=== PATIENT | female | born 1970 | race Caucasian/White ===

== ENCOUNTER → 2017-04-16 | Outpatient (CLI) | payer BC ==
[~2017-04-16] MED LIST: CIPROFLOXACIN500 M1 PO; CYMBALTA30 MG PO; CYMBALTA60 MG PO; DEXILANT60 MG; HYDROCODONE-AP1 EAC6 PO; IBUPROFEN 800800 M1 PO; LINZESS145 MCG PO; MOBIC15 MG PO; NABUMETONE 750750 M1 PO; NORCO 5-325 TA1 EACH PO; PERCOCET 5-3251 EACH PO; STEROID EYE DROPS; TAMSULOSIN HCL0.4 MG PO; TRAMADOL 50 MG50 MG; TRAMADOL 50 MG50 MG PO; ULTRAM 50MG TAB50 MG PO; XANAX 0.5 MG0.5 MG PO; ZOFRAN4 MG PO; ZPAK PO
--- NOTE | 2017-04-18 09:59 | PAINCON ---
[address] [address] PAIN MANAGEMENT CONSULTATION Name: KATHERINE RICHARD Room: [facility]..#: [id number] Admission: 04/16/17 Attend Phys: Edgar Gloria Discharge: Date of : 72 Report #: [id number] THIS REPORT FOR: //name// CC: Angelia Dugan DATE OF SERVICE: 04/16/2017 The patient is a very pleasant 46-year-old female who is typically treated for cervical radiculopathy, cervical spondylosis, myofascial pain, requiring high risk complex medication management, component of insomnia and anxiety. Last seen in pain clinic 01/15/2017, continued on baseline medication including tramadol 50 mg up to 4 a day, hydrocodone 5/325 up to 3 a day, Relafen 750 p.r.n. Continued on Cymbalta 30 mg a day. She returns to pain clinic today, we had a moderately prolonged visit reviewing therapeutic options. She notes pain is a little bit worse with anxiety and cold weather. Struggling with issues of her mother's declining health. Apparently, she has significant chronic obstructive pulmonary disease and was intubated on ventilator for a short period of time. She feels her mother is nearing the end of her life. The patient states she has not been eating and in fact she has lost a little bit of weight, last office visit weight was 152 pounds, she is down to 137. BMI is 25.9 kilograms per meter squared. She does have pain in the low back and is concerned about some kidney pain. PHYSICAL EXAMINATION: Shows a 46-year-old female, again 5 feet 1 inch, 137 pound, BMI is 25.9 kilograms per meter squared. Blood pressure 125/75, pulse 79, respirations are 18. Rises from chair using armrest. Gait is tandem, is a little tender in the upper lumbar paravertebral muscles, though there is no specific costovertebral angle tenderness to percussion. Lower extremity strength is symmetric. Straight leg raise is negative. We reviewed the fact that opiate medications are being used to provide analgesia adequate to support activities of daily living, not attempting to achieve a specific pain score on the 0-10 Visual Analog Scale. The current opiate medications are providing sufficient analgesia to allow the patient to participate in activities of daily living. The patient is not exhibiting any aberrant behavior suggestive of drug diversion. The patient is not having any adverse reactions to medications. The patient is not suffering from daytime somnolence or mental acuity changes. The patient is managing opiate-induced constipation with appropriate ywkd-flx-mgwxjnd agents and dietary considerations. The patient was counseled on concern for caution with operating a motor vehicle while using opiate medications. A physical exam was performed and the patient's [place] [address] PAIN MANAGEMENT CONSULTATION Name: KATHERINE RICHARD FABRICE Room: [facility]#: [id number] Admission: 04/16/17 Attend Phys: Edgar Gloria Discharge: Date of : 72 Report #: [id number] All patients with back pain were advised against the bed rest greater than 4 days and were advised to return to normal activities. Pain score assessment was noted and the treatment plan was reviewed with the patient. All current medications, both prescribed and OTC were reviewed and reconciled on the electronic medical record. Tobacco screening was accomplished and smoking cessation was advised when indicated. BMI was noted and diet/exercise modification was recommended for all patients following outside normal parameters. I reviewed with the patient today their responsibilities to safeguard prescription medications, reviewed their responsibility to utilize medications only as prescribed by the physician. They are to seek and receive pain medications only from one physician group ( [facility]). They are to use one pharmacy and keep the clinic informed if they change pharmacies. Their responsibilities include making followup visits in a timely fashion and to avoid abrupt discontinuation of medication usage. Their responsibilities further include bringing their medications (bottles from the pharmacy with residual pills) to the visit for possible confirmation of pill counts and the patient understands it is their responsibility to submit to random drug screens to ensure both that the medications prescribed are present, and that no other controlled substances are present. All prescriptions provided today were generated electronically. We did discuss anxiety, weight loss, anorexia and sleep disruption. After discussion with the patient, it was elected to increase Cymbalta to 60 mg. We talked about sleep hygiene. We will continue opiate analgesic unchanged, hydrocodone 5/325 t.i.d. and tramadol 50 mg up to 4 times a day. Continue with simply p.r.n. nabumetone on a nondaily basis. The patient was discharged in good and stable condition after approximately 25-minute visit spent in counseling the patient, reviewing grief issues, sleep hygiene, anxiety and pain management concerns. Follow up in 2 months for reevaluation. <ELECTRONICALLY SIGNED> By: Max Dugan DO 04/18/17 0959 1225 [id number] Dugan DO /nt
== END ==
LOC: M.PC 04-09 08:00
DX: M54.12 Radiculopathy, cervical region (principal); M47.892 Other spondylosis, cervical region; M79.1 Myalgia; G47.09 Other insomnia; F41.9 Anxiety disorder, unspecified; Z79.899 Other long term (current) drug therapy

== ENCOUNTER → 2017-07-09 | Outpatient (CLI) | payer BC ==
--- NOTE | 2017-07-14 08:02 | PAINCON ---
[address] [address] PAIN MANAGEMENT CONSULTATION Name: KATHERINE RICHARD Room: [facility] Priyanka#: [id number] Admission: 07/09/17 Attend Phys: Edgar Gloria Discharge: Date of : 72 Report #: [id number] THIS REPORT FOR: //name// CC: Angelia Dugan The patient is a very pleasant 46-year-old female being treated for cervical radiculopathy, cervical spondylosis, myofascial pain requiring complex medication management. Comorbidities include insomnia and anxiety. Last seen in pain clinic 04/16/2017. The patient's mother was quite sick with COPD. She has succumbed in the interval since I last saw her. The patient notes she has had a tough year. While her mother was dying, her kulpti-kc-irs was also ill. He has recovered, but he had surgery and is recuperating at their home. The patient remains quite stoic. She does, however, have somewhat of a raspy voice today, appears to have little bit of a sinus infection. Physical exam notes the patient to be afebrile, though she does have significant cervical adenopathy, posterior pharyngeal erythema and tenderness over the frontal maxillary sinuses. BMI is 26 kilograms per meter squared. Blood pressure 106/57, pulse 100, respirations 16. Ongoing pain in neck, shoulder and arm. Cervical range of motion is modestly limited. Subjective pain score is 6 on a VAS. We reviewed the fact that opiate medications are being used to provide analgesia adequate to support activities of daily living, not attempting to achieve a specific pain score on the 0-10 Visual Analog Scale. The current opiate medications are providing sufficient analgesia to allow the patient to participate in activities of daily living. The patient is not exhibiting any aberrant behavior suggestive of drug diversion. The patient is not having any adverse reactions to medications. The patient is not suffering from daytime somnolence or mental acuity changes. The patient is managing opiate-induced constipation with appropriate srxb-ite-alhirbp agents and dietary considerations. The patient was counseled on concern for caution with operating a motor vehicle while using opiate medications. A physical exam was performed and the patient's functional status was evaluated. All patients with back pain were advised against the bed rest greater than 4 days and were advised to return to normal activities. Pain score assessment was noted and the treatment plan was reviewed with the patient. All current medications, both prescribed and OTC were reviewed and reconciled on the electronic medical record. Tobacco screening was accomplished and smoking cessation was advised when indicated. BMI was noted and diet/exercise modification was recommended for all patients following outside normal parameters. I reviewed with the patient today their responsibilities to safeguard prescription medications, reviewed their responsibility [place] [address] PAIN MANAGEMENT CONSULTATION Name: KATHERINE RICHARD Room: [facility] Mathew#: [id number] Admission: 07/09/17 Attend Phys: Edgar Gloria Discharge: Date of : 72 Report #: [id number] only as prescribed by the physician. They are to seek and receive pain medications only from 1 physician group ( [facility]). They are to use 1 pharmacy and keep the clinic informed if they change pharmacies. Their responsibilities include making followup visits in a timely fashion and to avoid abrupt discontinuation of medication usage. Their responsibilities further include bringing their medications (bottles from the pharmacy with residual pills) to the visit for possible confirmation of pill counts and the patient understands it is their responsibility to submit to random drug screens to ensure both that the medications prescribed are present, and that no other controlled substances are present. All prescriptions provided today were generated electronically. ASSESSMENT: 1. Symptomatic cervical radiculopathy, cervical spondylosis, requiring chronic complex medication management, stable on baseline medication. Recommendation: Continue Ultram 50 mg 3-4 a day, hydrocodone 5/325 maximum 3 a day, Cymbalta 60 mg daily, Relafen 750 b.i.d. on a p.r.n. basis. 2. Acute sinusitis. Recommendation: Z-YAMIL and Mucinex D [id number]-ppxrgmh. Continue NeilMed sinus rinses. Follow up 2 months for reevaluation. Today, we did get a buccal drug swab. No aberrant behavior suggestive of drug diversion, simply complying with opiate consent to treat contract. Discharged in good and stable condition after a prolonged visit, seen from 8:00 a.m. to 8:25. Greater than 50% of the 25 plus minute visit was spent counseling the patient, talking about complicated grief, stress, anxiety and its relationship to pain. Discharged in good and stable condition. <ELECTRONICALLY SIGNED> By: Max Dugan DO 07/14/17801 1542 1956Max Dugan DO /nt
== END ==
LOC: M.PC 00:30
DX: M47.22 Other spondylosis with radiculopathy, cervical region (principal); J01.90 Acute sinusitis, unspecified; Z79.899 Other long term (current) drug therapy

== ENCOUNTER → 2017-10-01 | Outpatient (CLI) | payer BC ==
--- NOTE | 2017-10-02 07:27 | PAINCON ---
[facility] [address] [place] [address] PAIN MANAGEMENT CONSULTATION Name: KATHERINE RICHARD Room: [facility] Mathew#: [id number] Admission: 10/01/17 Attend Phys: Edgar Gloria Discharge: Date of : 72 Report #: [id number] THIS REPORT FOR: //name// CC: Angelia Dugan The patient is a very pleasant 46-year-old female being treated for symptomatic cervical radiculopathy, cervical spondylosis, myofascial pain requiring complex medication management. Last seen in the pain clinic on 07/09/2017. The patient was continued on hydrocodone 5/325 t.i.d. and tramadol 50 mg 1 tablet 3-4 times a day, limit 100 tablets for 30 days. Last random drug screen at last visit was positive for prescribed medications and no others. Last visit, the patient was having some ongoing struggles with psychosocial issues. Her mother had passed recently. Her pdicay-rw-dxu had surgery and was slow to recover. Started the patient on Cymbalta, which she found not terribly efficacious. She did have a little upper respiratory infection at that time and I treated her with a Z-YAMIL. She returns to the pain clinic today. She is doing better from a psychosocial standpoint. Actually doing better from a pain standpoint as well. She does take hydrocodone 5/325 one tablet typically up to 3 times a day. Uses Linzess for some chronic OIC. Tramadol 50 mg 1 tablet 3-4 times a day, limit 100 tablets for 30 days with 2 refills. I have taken the liberty of writing for 3 months of current medication. The patient notes that the medications help with concurrent pain is well under control. She notes pain is typically 3 on a VAS, increases at most to 8 on a VAS. She notes the pain is exacerbated with activity, but she has continued to be functional. PHYSICAL EXAMINATION: Shows 5 feet 1 inch, 147 pound female, BMI is 27 kilograms per meter squared. Vital signs stable. Alert and oriented to person, place and time, judged to be a reasonable historian. Cervical range of motion is actually fairly preserved. Some pain in the left shoulder with range of motion. Diffuse tenderness across the low back. No discrete trigger points. Gait is tandem. ASSESSMENT: Symptomatic cervical radiculopathy, cervical spondylosis, myofascial pain requiring complex medication management, stable on baseline medication. Last random drug screen at last visit on 07/09/2017 positive for prescribed medications. RECOMMENDATION: I have taken the liberty of writing for 3 months of current medications. She is still on a very low dose opiate, hydrocodone 5/325 up to [address] [place] [address] PAIN MANAGEMENT CONSULTATION Name: KATHERINE RICHARD Room: [facility] Mathew#: [id number] Admission: 10/01/17 Attend Phys: Edgar Gloria Discharge: Date of : 72 Report #: [id number] a day, tramadol 50 mg up to 4 a day. We will have her follow with Dr. Mukund Fuentes as needed. <ELECTRONICALLY SIGNED> By: Max Dugan DO 10/02/17 0727 1413 0022Max Dugan DO /nt
== END ==
LOC: M.PC 04:58
DX: M47.22 Other spondylosis with radiculopathy, cervical region (principal); M79.1 Myalgia; Z79.899 Other long term (current) drug therapy

== ENCOUNTER → 2017-12-25 | Outpatient (CLI) | payer BC ==
--- NOTE | 2018-01-19 10:00 | PAINCON ---
[address] [address] PAIN MANAGEMENT CONSULTATION Name: KATHERINE RICHARD Room: [facility] Arboleda.#: [id number] Admission: 12/25/17 Attend Phys: Edna Fuentes MD Discharge: Date of : 71 Report #: [id number] THIS REPORT FOR: //name// CC: Edna Morejon DO DATE OF SERVICE: 12/25/2017 CHIEF COMPLAINT: Neck and left shoulder pain. HISTORY OF PRESENT ILLNESS: The patient is a 47-year-old female who has been followed in the pain clinic for some time by Dr. Max Dugan. She experiences pain and discomfort in her neck. She has also had some pain in the occipital area. She has undergone injections in this area, also has had some trigger point injections in her neck. At this juncture, she rates her pain as 4/10. She has had a history of passing clots after steroid injections. She thinks that her pain has exacerbated by her work load. 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 By the time she goes home in the evening, she has increased from 4 in the morning to 6 at night. She finds that the hydrocodone, Linzess, tramadol and nabumetone are helpful. Feels that they are about 80% helpful in improving her pain. She has returned today with the hopes of renewing her medications. She has had no complications with the medications. States that she takes them as prescribed. Keeps her medications in a guarded area. ALLERGIES: PHENOTHIAZINES, PROCHLORPERAZINE, METOCLOPRAMIDE. MEDICATIONS: Alprazolam 0.5 mg b.i.d. Dexilant 60 mg, hydrocodone 5/325 one p.o. t.i.d., Linzess 145 mcg, nabumetone/Relafen 750 mg b.i.d., Ultram 100 mg, steroid eyedrops. Medications discontinued are Cymbalta 30 mg. PAST MEDICAL HISTORY: Hiatal hernia, kidney stones, emotional problems, ulcers. PAST SURGICAL HISTORY: Tonsils in 1979, tubal ligation in 2003, cholecystectomy 2001 and nose surgery in 1992. SOCIAL HISTORY: She works in an office, also clean homes. She is working at this juncture. REVIEW OF SYSTEMS: Questionnaire in the chart. Generally in good health, fever, sweats at night, headaches, constipation, frequent recurring headaches, lightheadedness, dizziness, memory loss, nervousness, insomnia. LABORATORY DATA: 1. MRI of the cervical spine dated 09/15/2013: [place] [address] PAIN MANAGEMENT CONSULTATION Name: HILARYKATHERINE FABRICE Room: [facility] Priyanka#: [id number] Admission: 12/25/17 Attend Phys: Edna Fuentes MD Discharge: Date of : 71 Report #: [id number] A: C4-C5, there is no evidence of herniation, central disk stenosis or neural foraminal stenosis. The midline measures 1.2 cm anterior posterior. B. C5-C6 level, there is mild annular disk bulge, slightly more prominent centrally and resulting in minimal effacement of the ventral midline thecal sac. There is no mass effect on the cervical cord. The exiting neural foramen are normal in appearance. There is mild central canal stenosis. The midline thecal sac measures 1 cm anterior posterior. C. C6-C7, there is a trace of annular disk bulging without focal herniation, central canal stenosis or neural foraminal stenosis. The midline thecal sac measures 1.2 cm. D. C7-T1, there is no evidence of herniation, central disk stenosis or neural foraminal stenosis. The midline measures 1.3 cm anterior posterior. PAIN CLINIC ASSESSMENT/PQRS: 1. History of osteoarthritis. The patient is not being treated for osteoarthritis or rheumatoid arthritis. 2. Height 5 feet 1 inch, weight 149 pounds, BMI is 28. 3. Vital signs: Blood pressure 137/74, heart rate 79, respiratory rate 16, room air saturation 100%, temperature 98.1. 4. Pain score of 4/10 now, 6/10 at home after work. 5. Fall history: The patient has not fallen in the last 3 months. 6. Blood thinner. The patient is not on a blood thinning medication. 7. Hypertension. The patient is being treated for hypertension. 8. Opioid good therapy greater than 6 weeks. The patient is receiving opioid medications through the pain clinic. 9. Risk assessment tool, low for opioid use. 10. Functional assessment tool. 11. Recreational drug use. The patient denies use of recreational drugs. 12. Tobacco: The patient denies use of tobacco. 13. Alcohol: The patient denies use of alcoholic beverages. PHYSICAL EXAMINATION: GENERAL: The patient is a well-developed, well-nourished white female. Appears her stated age. She is alert and oriented x 3. Her affect is appropriate. Speech is fluent. HEENT: Normocephalic, atraumatic. Extraocular eye muscles intact. Sclerae nonicteric. Mucous membranes are moist. The patient has some tenderness in the left occipital area. Palpation in this area as well as in the left shoulder and in the area of the trapezius causes and reproduces a component of her pain. Muscle strength in the upper extremities does have 5/5 with side hemmer strength 5/5. Deep tendon reflexes are +3 for the biceps bilaterally, +1 for the month, brachioradialis and trace for the triceps. MUSCULOSKELETAL: Without significant scoliosis, kyphosis or lordosis. Lower extremity muscle strength is judged to be 5/5 for the major muscle groups. Deep tendon reflexes +2 at the knees, +2 at the ankles bilaterally without signs of clubbing, cyanosis, [place] [address] PAIN MANAGEMENT CONSULTATION Name: KATHERINE RICHARD [id number] Admission: 12/25/17 Attend Phys: Edna Fuentes MD Discharge: Date of : 72 Report #: [id number] IMPRESSION: 1. Symptomatic cervical radiculopathy history. 2. Cervical spondylosis. 3. Myofascial pain requiring complex medical management. 4. History of ulcers. RECOMMENDATIONS: We discussed treatment options with the patient. We will continue with her current medical regimen. Risk and benefits of opioid medications were reviewed. The patient is aware of the possible complications of these medications that they can cause addiction. The efficacy can decrease secondary to chronic use. Overall, the patient feels that things are going reasonably well. They enable her to stay gainfully employed. She has taken the medication as prescribed. Keeps them in a guarded area. We would like to thank you for letting us participate in her care. We hope she continues to improve. <ELECTRONICALLY SIGNED> By: Edna Fuentes MD 01/19/18 1000 [id number] 1100N. Mukund Fuentes MD /nt
== END ==
LOC: M.PC 01:43
DX: M47.22 Other spondylosis with radiculopathy, cervical region (principal); M79.1 Myalgia; Z87.11 Personal history of peptic ulcer disease; Z79.899 Other long term (current) drug therapy

== ENCOUNTER → 2018-03-19 | Outpatient (CLI) | payer BC ==
--- NOTE | ~2018-03-19 | PAINCON ---
[address] [address] PAIN MANAGEMENT CONSULTATION Name: KATHERINE RICHARD Room: [facility] Arboleda.#: [id number] Admission: 03/19/18 Attend Phys: Edna Fuentes MD Discharge: Date of : 72 Report #: [id number] THIS REPORT FOR: //name// CC: Edna Moreojn DATE OF SERVICE: 03/19/2018 FOLLOWUP HISTORY: Here for medication renewal. I am going to see my GI doctor to have my throat stretched. HISTORY: The patient is a 47-year-old female who has been following the Pain Clinic. She has continued pain and discomfort in her neck. She also has pain and had pain in the occipital area. She has undergone injections in that area. Notes that the trigger point injection in her neck in the past have been beneficial. She rates her pain today as a 7. She is preparing for a colonoscopy. She has been unable to take her medications for a day or so. She states that she has esophageal strictures. Diffusely dilated yearly. She also has some problems with her bowel and they will perform a colonoscopy. Finds that the hydrocodone, Linzess, tramadol and nabumetone are continue to be helpful. Rates them in about 80% improvement in her pain with use. States her pain is generally a 3/10. It is a 7/10 today because of the lack of being able to take her medications. Otherwise, she is doing well. Has returned for renewal of her medications. 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 ALLERGIES: PHENOTHIAZINE, PROCHLORPERAZINE, METOCLOPRAMIDE. MEDICATIONS: Alprazolam 0.5 mg b.i.d., Dexilant 60 mg, hydrocodone 5/325 one p.o. t.i.d., Linzess 145 mcg, nabumetone/Relafen 750 mg b.i.d., Ultram 100 mg, steroid eye drops. Has used Cymbalta in the past, he is no longer using the medication. PAIN CLINIC ASSESSMENT/PQRS: 1. The patient is not being treated for osteoarthritis or rheumatoid arthritis. 2. Height 5 feet 1 inch, weight 154 pounds, BMI is 29. 3. Vital signs: Blood pressure 124/77, heart rate 98, respiratory rate 16, room air saturation 94. Temperature 97.8. 4. Pain intensity 7/10. 5. Blood thinner. The patient is not on a blood thinning medication. 6. Hypertension. The patient is not being treated for hypertension. 7. Opioid greater than 6 weeks. The patient receives her medication from one source, the pain clinic. 8. Risk assessment tool: Low for opioid use, 9. [place] [address] PAIN MANAGEMENT CONSULTATION Name: HILARYKATHERINE FABRICE Room: [facility]#: [id number] Admission: 03/19/18 Attend Phys: Edna Fuentes MD Discharge: Date of : 72 Report #: [id number] 10. Recreational drug use. The patient denies use of recreational drugs. 11. Tobacco: The patient denies use of tobacco. 12. Alcohol. The patient occasionally uses alcoholic beverage. PHYSICAL EXAMINATION: GENERAL: The patient is a well-developed, well-nourished white female. Appears her stated age. She is alert and oriented x 3. Her affect is appropriate. Speech is fluent. HEENT: Normocephalic, atraumatic. Extraocular eye muscles intact. Sclerae nonicteric. Mucous membranes are moist. The patient has some tenderness in the occipital areas. Has some pain in her left shoulder area and trapezius area and has some muscle soreness in the area. Muscle strength in the upper extremity judged to be 5/5 for the major muscle groups. MUSCULOSKELETAL: Without significant scoliosis, kyphosis or lordosis. Deep tendon reflexes +2 at the knees, ankles +2 without signs of clubbing, cyanosis, or edema. IMPRESSION: 1. History of cervical radiculopathy, improved with current medical regimen. 2. Cervical spondylosis. 3. Esophageal stricture history. 4. Myofascial pain, requiring complex medical management. 5. History of ulcers. The patient has been followed by her GI. RECOMMENDATIONS: We discussed treatment options with the patient. We will continue with her current medications. A script for her medication of tramadol 1 tablet p.o. q.4-6 hours p.r.n., hydrocodone 5/325 one p.o. t.i.d. p.r.n., Relafen 750 mg b.i.d., Linzess all been written. The patient will call us if she has any concerns. She will continue with her medications. She is aware that opioid medications can be problematic and become less effective secondary to development of tolerance. We would like to thank you for letting us participate in her care. We hope she continues to improve. By: [id number]. Mukund Fuentes MD /aster
== END ==
LOC: M.PC 05:26
DX: M47.22 Other spondylosis with radiculopathy, cervical region (principal); M79.18 Myalgia, other site; Z79.899 Other long term (current) drug therapy; Z87.19 Personal history of other diseases of the digestive system; Z87.11 Personal history of peptic ulcer disease

== ENCOUNTER → 2018-06-18 | Outpatient (CLI) | payer BC ==
--- NOTE | ~2018-06-18 | PAINCON ---
[address] [address] PAIN MANAGEMENT CONSULTATION Name: KATHERINE RICHARD Room: [facility]LEY Arboleda.#: [id number] Admission: 06/18/18 Attend Phys: Edna Fuentes MD Discharge: Date of : 72 Report #: [id number] THIS REPORT FOR: //name// CC: Edna Morejon DATE OF SERVICE: 06/18/2018 CHIEF COMPLAINT: Here for medication renewal. HISTORY: The patient is a 47-year-old female who has a history of symptomatic cervical radiculopathy. She has found that her medications are helpful. Pain primarily involves her left shoulder. Notes some pain which is radiating down into the left shoulder area. She has pain, which she rates as a 3/10. She has been using Linzess to help control constipation. She finds the medication is helpful. She does note sometimes if she takes the medication that she gets some cramping and upset stomach. She takes it episodically because of this. She has used nabumetone. She is not having any real problems with that medication. The patient is not being treated for osteoarthritis or rheumatoid arthritis. Overall, things are going reasonably well and she would like to have her medications renewed. She states that she is taking her medication as prescribed. She has had some problems with pain in her occipital area in the past and undergone injections. ALLERGIES: PHENOTHIAZINE, PROCHLORPERAZINE, METOCLOPRAMIDE. CURRENT MEDICATIONS: Alprazolam 0.5 mg b.i.d., Dexilant 60 mg, hydrocodone 5/325 one p.o. t.i.d., Linzess 145 mcg, nabumetone/Relafen 750 mg b.i.d., Ultram, and steroid eyedrops. PAIN CLINIC ASSESSMENT/PQRS: 1. The patient is not being treated for osteoarthritis or rheumatoid arthritis. 2. Height 5 feet 1 inch, weight is 158 pounds, BMI is 29.5. 3. Blood pressure 127/76, heart rate 85, respiratory rate 16, room air saturation 98%, temperature 98. Pain intensity 06/14. 4. Fall history: The patient has not fallen in the last 3 months. 5. Blood thinner: The patient is not on a blood thinning medication. 6. Hypertension: The patient is not being treated for hypertension. 7. Opioids greater than 6 weeks. The patient receives her medication from one source, the pain clinic. 8. Risk assessment tool, low for opioid use. 9. Functional assessment tool. 10. Recreational drug use. The patient denies use of recreational drugs. 11. Tobacco: The patient denies use of tobacco. 12. Alcohol: The patient denies frequent use of [place] [address] PAIN MANAGEMENT CONSULTATION Name: KATHERINE RICHARD FABRICE Room: [facility]#: [id number] Admission: 06/18/18 Attend Phys: Edna Fuentes MD Discharge: Date of : 72 Report #: [id number] PHYSICAL EXAMINATION: GENERAL: The patient is a well-developed, well-nourished white female. Appears her stated age. She is alert and oriented x 3. Her affect is appropriate. Speech is fluent. HEENT: Normocephalic, atraumatic. Extraocular eye muscles are intact. Sclerae nonicteric. Mucous membranes are moist. NECK: Without adenopathy or JVD. The patient has some pain and discomfort in the left shoulder in the trapezius area. Complains of the usual soreness in this area. Muscle strength in the upper extremity is judged to be 5-/5 for the major muscle groups in the upper extremity. The patient without significant scoliosis, kyphosis or lordosis. Lower extremity muscle strength is judged to be 5/5 for the major muscle groups of the lower extremity. IMPRESSION: 1. Cervical radiculopathy, improved with current medication regimen. 2. Cervical spondylosis. 3. Esophageal stricture history. 4. Myofascial pain requiring complex medical management. 5. History of ulcers. The patient has been followed by her GI. States she had an upper as well as a lower GI, which were found to be very relatively normal. Has had some abdominal cramping with use of Linzess. RECOMMENDATIONS: We discussed treatment options with the patient. We will continue with her current medications. A script for her medications of tramadol 50 mg 1 p.o. q.i.d., hydrocodone 5/325 one p.o. t.i.d., and Linzess and Relafen 750 mg have been rewritten. The patient will monitor her gut with use of nabumetone. If she finds that it is upsetting her stomach, she will take less. She will try the Linzess on a regular basis. Sometimes medications like prostaglandin type medications, if they are taken on a regular basis or less problematic then if they were taken episodically. She will try to take the medications on a regular basis for the next few weeks and note its efficacy. If her pain continues to be a problematic, she will take the medication when needed. We would like to thank you for letting us participate in her care. We hope she continues to improve. By: [id number]. Mukund Fuentes MD /aster
== END ==
LOC: M.PC 06-11 08:00
DX: M47.22 Other spondylosis with radiculopathy, cervical region (principal); M79.18 Myalgia, other site; Z87.19 Personal history of other diseases of the digestive system; Z87.11 Personal history of peptic ulcer disease; Z79.899 Other long term (current) drug therapy

== ENCOUNTER → 2018-10-29 | Outpatient (CLI) | payer BC ==
[~2018-10-29] MED LIST changes: +HYDROCODON-ACE1 EAC7 PO; +NORCO 5-325 TA1 EAC1 PO
--- NOTE | ~2018-10-29 | PAINCON ---
[address] [address] PAIN MANAGEMENT CONSULTATION Name: KATHERINE RICHARD Room: [facility] Mathew#: [id number] Admission: 10/29/18 Attend Phys: Edna Fuentes MD Discharge: Date of : 72 Report #: [id number] THIS REPORT FOR: //name// CC: Edna Morejon DATE OF SERVICE: 10/29/2018 CHIEF COMPLAINT: Neck pain and shoulder pain. HISTORY: The patient is a 47-year-old female who has been followed in the pain clinic because of chronic pain involving her neck, shoulder on the left. She has returned today for renewal of her medications. She describes her pain today as 5-6/10. She feels that the hydrocodone and tramadol are beneficial. She has had some problems with Linzess, finds that when takes this medication, she can be plagued with cramping and diarrhea. Feels that her pain overall is about 80% improved with use of her current medication regimen. She has returned today for renewal of her medications. The patient has found use of her nonsteroidal anti-inflammatory medications as well as Dexilant to be beneficial. Notes that her pain is worse when she is walking, sitting, standing, bending, and lifting. Feels that her medications are helpful. Use of cold packs are helpful. She has returned today for renewal of her medications. Pain continues to be problematic in the occipital area and she has had injections in the past. She would like to continue with conservative treatment today. ALLERGIES: ____ PHENOTHIAZINE, PROCHLORPERAZINE, METOCLOPRAMIDE. CURRENT MEDICATIONS: Alprazolam 0.5 mg b.i.d., Dexilant 60 mg, hydrocodone 5/325 one p.o. t.i.d., Linzess 145 mcg, nabumetone/Relafen 750 mg b.i.d., Ultram, steroid eyedrops. PAIN CLINIC ASSESSMENT/PQRS: 1. The patient is not being treated for osteoarthritis or rheumatoid arthritis. 2. Height 5 feet 1 inch, weight 142 pounds, BMI is 27.0. 3. VITAL SIGNS: Blood pressure 138/81, heart rate 72, respiratory rate 16, room air saturation 98%, temperature 98.3. 4. Pain intensity 5-6/10. 5. Fall history: The patient has not fallen in the last 3 months. 6. Blood thinner. The patient is not on a blood thinning medication. 7. Hypertension. The patient is not being treated for hypertension. 8. Opioids greater than 6 weeks. The patient receives her medication from one source the pain clinic. 9. Risk assessment tool, low for opioid use. 10. Functional assessment tool. 11. Recreational drug use. The patient denies use of recreational drugs. 12. Tobacco: The patient denies [place] [address] PAIN MANAGEMENT CONSULTATION Name: KATHERINE RICHARD FABRICE [id number] Admission: 10/29/18 Attend Phys: Edna Fuentes MD Discharge: Date of : 72 Report #: [id number] 13. Alcohol: The patient denies frequent use of alcohol except on special occasions. PHYSICAL EXAMINATION: GENERAL: The patient is a well-developed, well-nourished white female. Appears her stated age. She is alert and oriented x 3. Her affect is appropriate. Speech is fluent. HEENT: Normocephalic, atraumatic. Extraocular eye muscles intact. Sclerae nonicteric. Mucous membranes are moist. NECK: Without adenopathy or JVD. The patient has pain and discomfort in her left shoulder and trapezius area. Complains of some increased muscle soreness with movement and changing of position of her head. Upper extremity muscle strength judged to be 5-/5 for the major muscle groups in the upper extremities. The patient without significant scoliosis, kyphosis or lordosis. Lower extremity muscle strength is judged to be 5/5 for the major muscle groups in the lower extremity. IMPRESSION: 1. Cervical radicular pain involving myofascial components. 2. Cervical spondylosis. 3. Esophageal stricture history. 4. Myofascial pain requiring complex medical management. 5. History of ulcers. The patient has been followed by her GI doctor. She has had upper as well as lower GI was found to be relatively normal. Has some abdominal cramping with use of Linzess. RECOMMENDATION: The patient complains of some cramping with Linzess. We would recommend that the patient take the medication as needed. She may also try qwre-kzl-xzfiumv medications like little MiraLax and docusate. We explained to the patient that the importance of most of these laxatives medications is the need for significant amount of water. I asked that she increase her use of water 2-3 glasses additional per day and she might find that this has becomes less of a problem. She has been informed that the Linzess and prostaglandin type medications. If she takes these medications on a regular basis, they can be helpful, but if she takes them episodically you may notes some worsening of the cramping type of pain that she has been experiencing. She states that she understands. We will continue with her complex medical regimen using opioids to help control her pain. A script for her medications of Linzess 145 mcg 1 daily, nabumetone of 750 mg b.i.d., hydrocodone 5/325 one p.o. t.i.d. have all been rewritten. The patient will call us. She will also continue Tramadol 50 mg 1 p.o. t.i.d. to q.i.d. We would like to thank you for letting us participate in her care. The patient is aware that opioid medications [place] [address] PAIN MANAGEMENT CONSULTATION Name: KATHERINE RICHARD [facility]: [facility]#: [id number] Admission: 10/29/18 Attend Phys: Edna Fuentes MD Discharge: Date of : 72 Report #: [id number] some patients. We will also discuss the problems with chronic use, which could lead to tolerance. By: [id number]. Mukund Fuentes MD /nt
== END ==
LOC: M.PC 09-10 08:00
DX: M47.22 Other spondylosis with radiculopathy, cervical region (principal); Z79.891 Long term (current) use of opiate analgesic; Z79.899 Other long term (current) drug therapy

== ENCOUNTER → 2019-01-21 | Outpatient (CLI) | payer BC ==
--- NOTE | 2019-01-27 15:51 | PAINCON ---
[address] [address] PAIN MANAGEMENT CONSULTATION Name: KATHERINE RICHARD Room: [facility] Evie.Lilly.#: [id number] Admission: 01/21/19 Attend Phys: Edna Fuentes MD Discharge: Date of : 72 Report #: [id number] THIS REPORT FOR: //name// CC: Edna Morejon DO DATE OF SERVICE: 01/21/2019 CHIEF COMPLAINT: Neck pain. HISTORY: The patient is a 48-year-old female who has been followed in the pain clinic because of cervical radiculopathy. She has pain and discomfort that radiates down into her neck and arms. Finds that the pain involves her left shoulder. She feels that her medications continue to be helpful and help plicate the discomfort. She feels that her medications make it tolerable. She has had this pain for a number of years. Notes that her pain is worse when she is bending over at work using the phone. Also, using the computer can be problematic. Rates her pain as a 3/10. She feels that tramadol is beneficial as well. Overall with her medication regimen, she feels that things are about 50% improved. Notes the pain is worse with changes in weather to cold temperatures, walking, sitting, standing and climbing stairs. She has had no complications with her medications and would like to have them renewed. ALLERGIES: PHENOTHIAZINES, PROCHLORPERAZINE AND METOCLOPRAMIDE. CURRENT MEDICATIONS: Alprazolam 0.5 mg b.i.d., Dexilant 60 mg, hydrocodone 5/325 one p.o. t.i.d., Linzess 145 mcg, nabumetone 750 mg b.i.d., Ultram, steroid eyedrops. PAIN CLINIC ASSESSMENT AND PQRS: 1. The patient is not being treated for osteoarthritis or rheumatoid arthritis. 2. Height 5 feet 1 inch, weight 144 pounds, BMI is 27. 3. VITAL SIGNS: Blood pressure 124/74, heart rate 87, respiratory rate 16, room air saturation 96% and temperature 98.3. 4. Pain intensity is 3/10. 5. Fall history: The patient has not fallen in the last 3 months. 6. Blood thinner. The patient is not on a blood thinning medication. 7. Hypertension. The patient is not being treated for hypertension. 8. Opioids greater than 6 weeks. The patient received medication from one source, pain clinic. 9. Risk assessment tool, low for opioid use. 10. Functional assessment tool. 11. Recreational drug use. The patient denies. 12. Tobacco: The patient denies use of tobacco. 13. Alcohol: The patient denies frequent [place] [address] PAIN MANAGEMENT CONSULTATION Name: KATHERINE RICHARD FABRICE Room: [facility]#: [id number] Admission: 01/21/19 Attend Phys: Edna Fuentes MD Discharge: Date of : 72 Report #: [id number]. PHYSICAL EXAMINATION: GENERAL: The patient is a well-developed, well-nourished white female. Appears her stated age. She is alert and oriented x 3. Her affect is appropriate. Speech is fluent. HEENT: Normocephalic, atraumatic. Extraocular eye muscles intact. Sclerae nonicteric. Mucous membranes are moist. NECK: Without adenopathy or JVD. MUSCULOSKELETAL: The patient has some pain and discomfort in her left shoulder and trapezius area. Complains of increased muscle soreness with movement and changes position of her neck. Muscle strength judged to be 5-/5 for the major muscle groups in the upper extremity. The patient is without significant scoliosis, kyphosis or lordosis. Lower extremity muscle strength judged to be 5/5 for the major muscle groups in the lower extremity. IMPRESSION: 1. Cervical radiculopathy involving with myofascial pain component. 2. Cervical spondylosis. 3. Esophageal stricture history. 4. Myofascial pain requiring complex medical management. 5. History of ulcers. The patient has been followed by her GI doctor. She has upper as well as lower gastrointestinal evaluation found relatively normal. Some abdominal cramping with use of Linzess. RECOMMENDATIONS: We discussed the treatment with her current medical regimen. She feels the medications are helpful. She does not have any problems with the medication. She feels that these medications continued to be helpful in decreasing the amount of pain and discomfort she has. She is able to function better with their use. She is aware that opioid medications for some patients can be problematic. These can cause problems and addiction. The patient is not showing any signs of addiction. She has taken her medications as prescribed. Keeps it in a guarded area. She has returned today with the hopes of renewing her medications for its therapeutic benefit. We will renew her medications. A script for her medications has been rewritten. She will continue with hydrocodone 5/325 one p.o. t.i.d., tramadol 50 mg 1 p.o. q.i.d., total of 100 tablets and she will call us if she has any concerns. We would like to thank you for letting us participate in her care. We hope she continues to improve. <ELECTRONICALLY SIGNED> By: Edna Fuentes MD 01/27/19 [id number]. Mukund Fuentes MD /nt
== END ==
LOC: M.PC 04:37
DX: M47.22 Other spondylosis with radiculopathy, cervical region (principal); M79.18 Myalgia, other site; Z88.8 Allergy status to other drugs, medicaments and biological substances; Z79.899 Other long term (current) drug therapy

== ENCOUNTER → 2019-04-15 | Outpatient (CLI) | payer BC ==
[~2019-04-15] MED LIST changes: +NORVASC 2.5 MG2.5 M1 PO
--- NOTE | ~2019-04-15 | PAINCON ---
[address] [address] PAIN MANAGEMENT CONSULTATION Name: KATHERINE RICHARD Room: [facility] Nkechi.#: [id number] Admission: 04/15/19 Attend Phys: Edna Fuentes MD Discharge: Date of : 72 Report #: [id number] THIS REPORT FOR: //name// CC: Edna HONEYCUTT DATE OF SERVICE: 04/15/2019 CHIEF COMPLAINT: Neck pain. HISTORY: The patient is a 48-year-old female who has been followed in the pain clinic. As you recall, she suffers from cervical radiculopathy. She has pain sometimes that radiates down into her arms. She has been noticing some increased pain in her shoulders on the base of her neck. 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 Finds that when her stress levels increased, her pain increases. She has a pain score today of 6/10. Notes that more use of the computer exacerbates her pain. She has noted some changes in her fingers. Now that the weather has changed to become more cold, she notes that her fingers go from white to blue to red. States that her mother had a similar problem and that her daughter has a similar problem. Notes that if she puts a warm blanket or ____ on to her fingers so they returned to normal. Otherwise, they often times are quite cold during this time of the year. Notes that the pain can be exacerbated by the temperatures in her hands. ALLERGIES: PHENOTHIAZINES, PROCHLORPERAZINE, METOCLOPRAMIDE. CURRENT MEDICATIONS: Alprazolam 0.5 mg b.i.d., Dexilant 60 mg, hydrocodone 5 mg 1 p.o. t.i.d., Linzess 145 mcg, nabumetone 750 mg b.i.d., Ultram, steroid drops for the eye. PAIN CLINIC ASSESSMENT/ PQRS: 1. The patient is not being treated for osteoarthritis. She is not being treated for rheumatoid arthritis. 2. Height 5 feet 1 inch, weight 146 pounds, BMI is 27.7. 3. Vital signs: Blood pressure 126/82, heart rate 80, respiratory rate 16, room air saturation 98%, temperature 98.3. 4. Pain intensity 10. 5. Fall history: The patient has not fallen in the last 3 months. 6. Blood thinner. The patient is not on a blood thinning medication. 7. Hypertension. The patient is not being treated for hypertension. 8. Opioids greater than 6 weeks. The patient receives medication from one source of the pain clinic. 9. Risk assessment tool, [place] [address] PAIN MANAGEMENT CONSULTATION Name: KATHERINE RICHARD [id number] Admission: 04/15/19 Attend Phys: Edna Fuentes MD Discharge: Date of : 72 Report #: [id number] 10. Functional assessment tool: The patient denies use of recreational drugs. 11. Tobacco: The patient denies smoking. 12. Alcohol: The patient occasionally drinks alcoholic beverages. PHYSICAL EXAMINATION: GENERAL: The patient is a well-developed, well-nourished white female. Appears her stated age. She is alert and oriented x 3. Her affect is appropriate. Speech is fluent. HEENT: Normocephalic, atraumatic. Extraocular eye muscles intact. Sclerae nonicteric. Mucous membranes are moist. NECK: The patient complains of some pain and discomfort in the posterior portion of her neck. Occasionally, has pain that radiates down into her shoulders into her fingers. MUSCULOSKELETAL: Without significant scoliosis, kyphosis or lordosis. The patient's muscle strength in the upper extremity 5-/5 for the major muscle groups in the upper extremity. The patient without significant scoliosis, kyphosis. Lower extremity muscle strength 5/5. EXTREMITIES: The patient has some cold sensation in her hands. They are cold to touch. When provided a blanket. They go from white to a more red color. IMPRESSION: 1. Cervical radiculopathy involving myofascial pain. 2. Cervical spondylosis. 3. Esophageal stricture history. 4. Myofascial pain requiring complex medical management using opioids. 5. History of ulcers. The patient is followed by her doctor. She has a GI physician. 6. The patient with findings of her hands going from white to purple/blue to red. These findings are not inconsistent with Raynaud's syndrome. The patient will be provided with amlodipine 2.5 mg. RECOMMENDATIONS: We discussed the treatment options with the patient. At this juncture, she feels that her medications are helpful. We will continue with the hydrocodone medication. She feels that this medication as well as tramadol are helpful. Continues to have pain and discomfort on certain times. Feels that her pain has been more problematic. This is the New Year. She is an title officer. Has noticed an increased amount of stress and feels that has something to do with increased pain and discomfort she is having in her neck. We will continue with her hydrocodone 5 mg 1 p.o. t.i.d. A total of 3 months medication has been provided. The patient will also continue with tramadol 50 mg one tablet p.o. t.i.d. to q.i.d. as needed. The patient will be provided with amlodipine 2.5 mg daily. Hopefully, this will help with the Raynaud's type symptomatology she is having in her hands. She will call us if she has any concerns. We have explained that possible hypertensive medications can cause her to feel a little bit lightheaded when she stands up initially [place] [address] PAIN MANAGEMENT CONSULTATION Name: KATHERINE RICHARD FABRICE Room: [facility]#: [id number] Admission: 04/15/19 Attend Phys: Edna Fuentes MD Discharge: Date of : 72 Report #: [id number] We would like to thank you for letting us participate in her care. She will follow up in the near future. A script for Linzess 145 mcg is provided as well as one for nabumetone 750 mg. She will continue to watch her GI tract in regards to use of these nonsteroidal anti-inflammatory medications. By: [id number]. Mukund Fuentes MD /nt
== END ==
LOC: M.PC 08:00
DX: M47.22 Other spondylosis with radiculopathy, cervical region (principal); Z79.891 Long term (current) use of opiate analgesic; Z79.899 Other long term (current) drug therapy; Z88.8 Allergy status to other drugs, medicaments and biological substances

== ENCOUNTER → 2019-07-08 | Outpatient (CLI) | payer BC ==
--- NOTE | ~2019-07-08 | PAINCON ---
[address] [address] PAIN MANAGEMENT CONSULTATION Name: KATHERINE RICHARD Room: [facility]#: [id number] Admission: 07/08/19 Attend Phys: Edna Fuentes MD Discharge: Date of : 72 Report #: [id number] THIS REPORT FOR: //name// cc: Angelia Morejon Tara DO THIS REPORT FOR: //name// CC: Edna Coffey [facility] Angelia Morejon DATE OF SERVICE: 07/08/2019 CHIEF COMPLAINT: Continued neck pain. HISTORY: The patient is a 48-year-old female who has been followed in the pain clinic. She has a history of cervical radiculopathy. She continues to have pain in the neck area. She is working at home now because of the COVID-19 problem. Notes some increased pain in her shoulders and neck. Pain increases with stress. Working from her computer exacerbates the pain. The patient has noticed some increased pain in her left leg. It radiates down the left lateral side. At this point, she would like to consider treatment in the future. She is nervous because of the COVID situation. She rates her pain overall as a 3/10. She does have some problems with her fingers. They turn colors. Her mother had a similar problem. Notes that if she puts her hands in warm areas, the color returns. It seems as though she may have Raynaud's disease. She has used Norvasc 2.5 mg. She is not sure how well that worked. She would like to have a renewal of that medication. ALLERGIES: PHENOTHIAZINE, PROCHLORPERAZINE, METOCLOPRAMIDE. CURRENT MEDICATIONS: Alprazolam 0.5 mg b.i.d., Dexilant 60 mg, hydrocodone 1 p.o. t.i.d., Linzess 145 mcg, nabumetone 750 mg b.i.d., Ultram, steroid drops for the eyes. PAIN CLINIC ASSESSMENT AND PQRS: 1. The patient is not being treated for osteoarthritis. She is not being treated for rheumatoid arthritis. 2. Height 5 feet 1 inch, weight 147 pounds, BMI is 27. Vital Signs: Blood pressure 136/75, heart rate 64, respiratory rate 16, room air saturation is 98%, temperature 98.1. 3. Pain intensity 10. 4. Fall history: The patient has not fallen in the last 3 months. 5. Blood thinner. The patient is not on a blood thinning medication. 6. Hypertension. The patient is not [place] [address] PAIN MANAGEMENT CONSULTATION Name: KATHERINE RICHARD Room: [facility]#: [id number] Admission: 07/08/19 Attend Phys: Edna Fuentes MD Discharge: Date of : 72 Report #: [id number] 7. Opioids greater than 6 weeks. The patient received medication from the pain clinic. 8. Risk assessment tool, low for opioid use. 9. Functional assessment tool reviewed. 10. Recreational drugs. The patient denies use of recreational drugs. 11. Tobacco: The patient denies use of tobacco. 12. Alcohol: The patient occasionally drinks alcoholic beverages. PHYSICAL EXAMINATION: GENERAL: The patient is a well-developed, well-nourished white female. Appears her stated age. She is alert and oriented x 3. Her affect is appropriate. Speech is fluent. HEENT: Normocephalic, atraumatic. Extraocular eye muscles intact. Sclerae nonicteric. Mucous membranes are moist. NECK: Without adenopathy. The patient has some pain and discomfort in her neck. Occasionally, has pain that radiates down into her shoulder and involving her fingers. MUSCULOSKELETAL: Without significant scoliosis, kyphosis or lordosis. The patient has some pain and discomfort in the left lower hip area, radiating down the lateral portion of her thigh. Muscle strength judged to be 5-/5 for the major muscle groups in the lower extremity. EXTREMITIES: The patient's hands appear normal today. It is warm outside. IMPRESSION: 1. Cervical radiculopathy involving myofascial pain. 2. Cervical spondylosis. 3. Esophageal stricture history. 4. Myofascial pain requiring complex medical management using opioids to help with the radicular pain. 5. History of ulcers. The patient is followed by her GI doctor. 6. The patient has findings in her hands, which are consistent with Raynaud's syndrome. We will rewrite her amlodipine. RECOMMENDATIONS: We discussed treatment options with the patient. We will renew the amlodipine. The patient will monitor her hands for changes associated with Raynaud's syndrome. We will also continue with her opioid medications. A script for tramadol 50 mg 1 p.o. t.i.d. has been provided, 100 tablets are available. The patient will also continue with hydrocodone 1 tablet p.o. t.i.d. 5 mg. A total of 3 months' prescription of medication has been provided. The patient will also continue with Linzess to help with constipation. She will call us if she has any concerns. The patient is using Relafen. She will monitor this. If she notes some increased problem with her GI, she will stop taking this medication and consult [place] [address] PAIN MANAGEMENT CONSULTATION Name: KATHERINE RICHARD Room: [facility]#: [id number] Admission: 07/08/19 Attend Phys: Edna Fuentes MD Discharge: Date of : 72 Report #: [id number] We would like to thank you for letting us participate in her care. We hope she continues to improve. By: [id number]. Mukund Fuentes MD /nt
== END ==
LOC: M.PC 01:25
DX: M47.22 Other spondylosis with radiculopathy, cervical region (principal); M79.18 Myalgia, other site; K22.2 Esophageal obstruction; Z88.1 Allergy status to other antibiotic agents; Z88.8 Allergy status to other drugs, medicaments and biological substances; Z87.19 Personal history of other diseases of the digestive system; Z79.899 Other long term (current) drug therapy

== ENCOUNTER → 2019-10-07 | Outpatient (CLI) | payer BC ==
[~2019-10-07] MED LIST changes: +MEDROLDOSEPACK PO
--- NOTE | 2019-10-14 15:40 | PAINCON ---
[address] [address] PAIN MANAGEMENT CONSULTATION Name: KATHERINE RICHARD Room: [facility]#: [id number] Admission: 10/07/19 Attend Phys: Edna Fuentes MD Discharge: Date of : 72 Report #: [id number] THIS REPORT FOR: //name// cc: Angelia Morejon Tara DO THIS REPORT FOR: //name// CC: Edna Morejon DATE OF SERVICE: 10/07/2019 CHIEF COMPLAINT: Neck pain and left hip pain. HISTORY: The patient is a 48-year-old female who has been followed in the pain clinic because of cervical radiculopathy. She has been experiencing pain in her neck. She notes that certain activities can exacerbate her discomfort. She has returned to the pain clinic for renewal of her medications. She has been having some pain and discomfort involving the left leg. It involves her hip. When she lies on her left hip there is quite a bit of pain and discomfort. She notes that his pain, sore to touch. She has been using nonsteroidal anti-inflammatory medications. She has complained of some discomfort overall and rates it as a 3. Feels that she is about 50% improved with her current medical regimen. She has had no complication from that use. She would like to have the medications renewed. ALLERGIES: PHENOTHIAZINE, PROCHLORPERAZINE, METOCLOPRAMIDE. CURRENT MEDICATIONS: Alprazolam 0.5 mg b.i.d., Dexilant 60 mg, hydrocodone 5 mg 1 p.o. t.i.d., Linzess 145 mcg, nabumetone 750 mg b.i.d., Ultram, steroid drops for the eye. PAIN CLINIC ASSESSMENT AND PQRS: 1. The patient is not being treated for osteoarthritis. She is not being treated for rheumatoid arthritis. 2. Height 5 feet 1 inch, weight 145 pounds, BMI is 27.5. 3. Vital Signs: Blood pressure 123/75, heart rate 79, respiratory rate 16, room air saturation 98%, temperature 97.8. 4. Pain intensity 06/14. 5. Fall history: The patient has not fallen in the last 3 months. 6. Blood thinner. The patient is not on a blood thinning medication. 7. Hypertension. The patient is not being treated for hypertension. 8. Opioids greater than 6 weeks. The patient receives medication from the pain clinic. 9. Risk assessment tool, low for opioid use. 10. Functional [place] [address] PAIN MANAGEMENT CONSULTATION Name: KATHERINE RICHARD Ammy Room: [facility]#: [id number] Admission: 10/07/19 Attend Phys: Edna Fuentes MD Discharge: Date of : 72 Report #: [id number] 11. Recreational drug use: The patient denies. 12. Tobacco: The patient denies use of tobacco. 13. Alcohol: The patient occasionally drinks alcoholic beverages. PHYSICAL EXAMINATION: GENERAL: The patient is a well-developed, well-nourished white female. Appears her stated age. She is alert and oriented x 3. Her affect is appropriate. Speech is fluent. HEENT: Normocephalic, atraumatic. Extraocular eye muscles intact. Sclerae nonicteric. Mucous membranes are moist. The patient is wearing a mask. NECK: Without adenopathy. The patient does have some pain and discomfort in the left side of her neck, which radiates down into her shoulder and sometimes down into her finger on the left side. MUSCULOSKELETAL: Without significant scoliosis, kyphosis or lordosis. The patient has some discomfort in the left hip area. Palpation in the area of the greater trochanteric bursa causes a reproduction of her pain. Muscle strength judged to be 5-/5 for the major muscle groups in the lower extremity. The patient has a history of Raynaud's type changes in her hand. It is warm outside. No changes today. IMPRESSION: 1. Cervical radiculopathy involving myofascial pain. 2. Cervical spondylosis. 3. Esophageal stricture history. 4. Myofascial pain requiring complex medical management using opioids to help control pain with radicular pain. 5. History of ulcers. The patient is followed by her GI doctor. 6. The patient finds that her hands are not having problems with Raynaud's syndrome. RECOMMENDATION: We will have the patient try Medrol Dosepak. We will see whether or not this is helpful with the greater trochanteric pain and discomfort from bursitis. She will continue with her medications of hydrocodone 5 mg 1 p.o. t.i.d. Script for Linzess has been rewritten as well. The patient will continue to monitor her GI tract given that she is taking Relafen b.i.d. She will call us if she has any problems. She feels her medications are helpful and provided about 50% improvement. She will consider possibility of an injection in the left greater trochanteric area for trochanteric bursitis in the future. We would like to thank you for letting us participate in her care. She is aware that medications may become less effective as time goes on because of development of tolerance. We have discussed the benefits of standing. She does [address] [address] PAIN MANAGEMENT CONSULTATION Name: KATHERINE RICHARD [id number] Admission: 10/07/19 Attend Phys: Edna Fuentes MD Discharge: Date of : 72 Report #: [id number] sit at a desk all day. She will consider looking into a standing type of desk to improve her health. <ELECTRONICALLY SIGNED> By: Edna Fuentes MD 10/14/19 1540 [id number]. Mukund Fuentes MD /[facility]
== END ==
LOC: M.PC 09-30 08:00
PROVIDERS: ATTEND Anesthesiology Pain Medicine
DX: M47.22 Other spondylosis with radiculopathy, cervical region (principal); M25.552 Pain in left hip; M79.10 Myalgia, unspecified site; Z87.11 Personal history of peptic ulcer disease; F11.20 Opioid dependence, uncomplicated

== ENCOUNTER → 2020-01-11 | Outpatient (CLI) | payer BC ==
--- NOTE | 2020-01-13 09:35 | PAINCON ---
[address] [address] PAIN MANAGEMENT CONSULTATION Name: KATHERINE RICHARD Room: [facility]#: [id number] Admission: 01/11/20 Attend Phys: Edna Fuentes MD Discharge: Date of : 72 Report #: [id number] THIS REPORT FOR: //name// cc: Paul Coffey Robin L. FNP THIS REPORT FOR: //name// CC: Edna Coffey DATE OF SERVICE: 01/11/2020 CHIEF COMPLAINT: Continued neck pain, particularly on the left side. HISTORY: The patient is a 49-year-old female who has been followed in the pain clinic because of cervical radiculopathy. She continues to have pain and discomfort, which involves her neck on the left side. She also has pain in the left knee. These pains have been ongoing for a number of years. She notes that the pain in the knee seems to be doing a little bit better. She rates her pain overall as a 3/10. She denies any problem with her medications. She is able to think clearly. She keeps her medications in a guarded area. She feels her pain is about 50% better. She has returned today for renewal of her medication. Activities of daily living exacerbate the discomfort. The pain is improved with her medications. ALLERGIES: PHENOTHIAZINE, PROCHLORPERAZINE AND METOCLOPRAMIDE. CURRENT MEDICATIONS: Alprazolam 0.5 mg b.i.d., Dexilant 60 mg, hydrocodone 5/325 one p.o. t.i.d., Linzess 145 mcg, nabumetone 750 mg b.i.d., Ultram, and steroid eyedrops. PAIN CLINIC ASSESSMENT AND PQRS: 1. The patient is not being treated for osteoarthritis. She is not being treated for rheumatoid arthritis. 2. Height 5 feet 1 inch, weight 156 pounds, BMI is 29.1. 3. Vital Signs: Blood pressure 120/73, heart rate 88, respiratory rate 16, room air saturation 97%, temperature 97.9. 4. Pain intensity 06/14. 5. Fall history: The patient has not fallen in the last 3 months. 6. Blood thinner. The patient is not on a blood thinning medication. 7. Hypertension. The patient is not being treated for hypertension. 8. Opioids greater than 6 weeks. The patient receives medication from one source the pain clinic. 9. Risk assessment tool, low for opioid use. 10. Functional assessment tool reviewed. 11. Recreational [place] [address] PAIN MANAGEMENT CONSULTATION Name: KATHERINE RICHARD Room: [facility]#: [id number] Admission: 01/11/20 Attend Phys: Edna Fuentes MD Discharge: Date of : 72 Report #: [id number] 12. Tobacco: The patient denies. 13. Alcohol: The patient occasionally drinks alcoholic beverages. PHYSICAL EXAMINATION: GENERAL: The patient is a well-developed, well-nourished white female. Appears her stated age. She is alert and oriented x 3. Her affect is appropriate. Speech is fluent. HEENT: Normocephalic, atraumatic. Extraocular eye muscles intact. The patient is wearing a facial covering. NECK: Without adenopathy. MUSCULOSKELETAL: The patient has some pain and discomfort in the left side of her neck. She notes that it radiates up into her shoulder. She has pain down into her fingers on the left side on occasion. The patient without significant scoliosis, kyphosis or lordosis. Upper extremity muscle strength judged to be 5-/5 for the major muscle groups in the upper extremity. The patient has some pain in the left knee. The patient does have a history of Raynaud's type changes in her hand, it is continues to be warm from 01/2020. IMPRESSION: 1. Cervical radiculopathy involving myofascial pain. 2. Cervical spondylosis. 3. Esophageal stricture history. 4. Myofascial pain requiring complex medical management with opioids to help control pain. 5. History of ulcers. The patient followed by her GI doctor. 6. The patient finds her hands to be problematic because of the Raynaud's syndrome. RECOMMENDATIONS: We will continue with the patient's current medications of tramadol 50 mg 1 p.o. q.i.d. She also will continue with hydrocodone 5/325 one p.o. t.i.d. The patient will continue to monitor her GI tract with use of the nabumetone. She will call us if she has any concerns. We would like to thank you for letting us participate in her care. She feels that the medication is helpful and feels that her pain is about 50% improved with use of her current regimen. <ELECTRONICALLY SIGNED> By: Edna Fuentes MD 01/13/20 0935 [id number]. Mukund Fuentes MD /aster
== END ==
LOC: M.PC 12-30 08:00
PROVIDERS: ATTEND Anesthesiology Pain Medicine
DX: M47.22 Other spondylosis with radiculopathy, cervical region (principal); M79.7 Fibromyalgia; F11.20 Opioid dependence, uncomplicated; Z87.19 Personal history of other diseases of the digestive system; Z87.11 Personal history of peptic ulcer disease; Z79.899 Other long term (current) drug therapy; Z88.8 Allergy status to other drugs, medicaments and biological substances

== ENCOUNTER → 2020-04-04 | Outpatient (CLI) | payer BC | LOC: M.PC 08:00 | PROVIDERS: ATTEND Anesthesiology Pain Medicine | DX: M47.22 Other spondylosis with radiculopathy, cervical region (principal); M79.7 Fibromyalgia; I73.00 Raynaud's syndrome without gangrene; Z88.8 Allergy status to other drugs, medicaments and biological substances; Z79.899 Other long term (current) drug therapy ==

== ENCOUNTER → 2020-06-27 | Outpatient (CLI) | payer BC | LOC: M.PC 07:33 | PROVIDERS: ATTEND Anesthesiology Pain Medicine | DX: M47.22 Other spondylosis with radiculopathy, cervical region (principal); I73.00 Raynaud's syndrome without gangrene; M79.10 Myalgia, unspecified site; Z85.01 Personal history of malignant neoplasm of esophagus; Z87.11 Personal history of peptic ulcer disease; Z88.8 Allergy status to other drugs, medicaments and biological substances; Z79.899 Other long term (current) drug therapy ==

== ENCOUNTER → 2020-09-19 | Outpatient (CLI) | payer BC | LOC: M.PC 09:50 | PROVIDERS: ATTEND Anesthesiology Pain Medicine | DX: M47.22 Other spondylosis with radiculopathy, cervical region (principal); I73.00 Raynaud's syndrome without gangrene; Z79.891 Long term (current) use of opiate analgesic; Z79.899 Other long term (current) drug therapy; Z88.8 Allergy status to other drugs, medicaments and biological substances ==

== ENCOUNTER → 2021-01-09 | Outpatient (CLI) | payer BC | LOC: M.PC 11:16 | PROVIDERS: ATTEND Anesthesiology Pain Medicine | DX: M25.562 Pain in left knee (principal); M79.605 Pain in left leg; M47.22 Other spondylosis with radiculopathy, cervical region; Z79.899 Other long term (current) drug therapy; Z88.8 Allergy status to other drugs, medicaments and biological substances ==

== ENCOUNTER → 2021-03-13 | Outpatient (CLI) | payer BC | LOC: M.PC 11:54 | PROVIDERS: ATTEND Anesthesiology Pain Medicine | DX: M47.22 Other spondylosis with radiculopathy, cervical region (principal); M79.18 Myalgia, other site; Z86.16 Personal history of COVID-19 ==